=== PATIENT | female | born 1990 | race Caucasian/White ===

== ENCOUNTER 2020-01-13 00:12 | Emergency (ER) | payer MEDICAID, OTHER ==
[~2020-01-13] VITALS: Ht 162.6 cm; Wt 74.6 kg
[2020-01-13 00:15] VITALS: BP 150/79
[2020-01-13] MEDS ORDERED: LORazepam 1MG TABLET ONE (00:42)
[2020-01-13] MEDS ORDERED: LORazepam 1MG TABLET PO ONE (01:00)
== END 2020-01-13 01:54 | disposition home or self-care (01) ==
LOC: ED 01:40
DX: F41.1 Generalized anxiety disorder (principal); F17.290 Nicotine dependence, other tobacco product, uncomplicated; Z72.9 Problem related to lifestyle, unspecified
CPT/HCPCS: 99283; 99406